=== PATIENT | female | born 1970 | race Caucasian/White ===

== ENCOUNTER 2023-05-22 23:43 | Emergency (ER) | payer OTHER, SELFPAY ==
[2023-05-22 23:47] VITALS: BP 151/108; PULSE 116; RESP 30; TEMP 37.2; O2SAT 99; BMI 28.8
[2023-05-22 23:54] VITALS: PULSE 112; RESP 35; O2SAT 98
[2023-05-22 23:55] VITALS: BP 119/57; PULSE 111; PULSE 112; RESP 22; RESP 39; O2SAT 97
--- NOTE | 2023-05-22 23:55 | DI.RAD.S_ITS ---
PROCEDURE: XR CHEST 1V INDICATIONS: SOB TECHNIQUE: One view of the chest was acquired. COMPARISON: None. FINDINGS: Surgical changes and devices: None. Lungs and pleura: Lungs are clear. No pleural effusions or pneumothorax. Mediastinum: Mediastinal contours appear normal. Heart size is normal. Bones and chest wall: No suspicious bony lesions. Overlying soft tissues appear unremarkable. IMPRESSION: 1. No acute cardiopulmonary disease. Dictated by: Joshua Martínez M.D. on 05/23/2023 at 1:49 Approved by: Joshua Martínez M.D. on 05/23/2023 at 1:49
--- NOTE | 2023-05-22 23:55 | ED.OVERDOSE ---
HPI - Overdose <Garrett Lorenz DO - Last Filed: 05/24/23 04:27> General Chief Complaint: Toxicology Problem Stated Complaint: Agonal Respiration Time Seen by Provider: 05/22/23 23:49 Source: EMS Mode of arrival: EMS History of Present Illness HPI Narrative: 53-year-old female daily smoker presents by EMS for evaluation of what is initially reported as agonal respirations. On their arrival 2 rounds of intranasal Narcan were given which did little but upon placement of IV and a 3rd dose she woke up. She denies any opioid use and states that she only had smoked a pre role of cannabis tonight. She denies any headache or blurred vision. She is had no chest pain and denies any nausea, vomiting or diarrhea. Related Data Allergies Allergy/AdvReac Type Severity Reaction Status Date / Time No Known Drug Allergies Allergy Verified 05/22/23 23:47 Review of Systems <Garrett Lorenz DO - Last Filed: 05/24/23 04:27> Review of Systems Narrative: GENERAL: See HPI HEENT: Denies sinus pain, ear pain, sore throat, difficulty swallowing, dizziness. RESPIRATORY: See HPI CARDIOVASCULAR: Denies chest pain, palpitations, orthopnea, edema, GASTROINTESTINAL: Denies nausea, vomiting, abdominal pain, diarrhea, constipation, melena. : Denies dysuria, frequency, incontinence, hematuria, urinary retention. MUSCULOSKELETAL: denies weakness, joint pain, or bony pain SKIN: Denies rash, skin lesions, or other NEUROLOGIC: Denies weakness, headache, numbness, change in speech, confusion, seizures, incoordination. PSYCHIATRIC: No concerning psychosocial issues. 12 point review of systems is negative except for those stated above Patient History <Garrett Lorenz DO - Last Filed: 05/24/23 04:27> Social History Smoking Status: Current every day smoker Smoking Status: Current every day smoker tobacco type: cigarettes Substance Use Type: marijuana Exam <Garrett Lorenz DO - Last Filed: 05/24/23 04:27> Narrative Exam Narrative: GENERAL: [53] year old patient appears stated age. Well-developed patient, in moderate distress, receiving oxygen by nasal cannula at 2 L, GCS 14, confused, easily arousable HEAD: Atraumatic. Normocephalic. EYES: Pupils equal round and reactive. Extraocular motions intact. No scleral icterus. No injection or drainage. ENT: Nose without bleeding, purulent drainage. Throat without erythema, tonsillar hypertrophy or exudate. Airway patent. NECK: Trachea midline. Non tender CARDIOVASCULAR: Regular rate and rhythm without murmurs, gallops, or rubs. RESPIRATORY: Clear to auscultation. Breath sounds equal bilaterally. No wheezes, rales, or rhonchi. GASTROINTESTINAL: Abdomen soft, non-tender, nondistended. EXTREMITIES: No edema or joint tenderness. BACK: Nontender without deformity or crepitance. No flank tenderness. NEURO: Cranial nerves 2-12 grossly intact SKIN: No rash or erythema of visible areas Initial Vital Signs Initial Vital Signs: Vital Signs Temperature 99 F 05/22/23 23:47 Pulse Rate 116 H 05/22/23 23:47 Respiratory Rate 30 H 05/22/23 23:47 Blood Pressure 151/108 H 05/22/23 23:47 Pulse Oximetry 99 05/22/23 23:47 Oxygen Delivery Method Room Air 05/22/23 23:47 <La Nena Shipman DO - Last Filed: 05/23/23 12:37> Initial Vital Signs Initial Vital Signs: Vital Signs Temperature 99 F 05/22/23 23:47 Pulse Rate 116 H 05/22/23 23:47 Respiratory Rate 30 H 05/22/23 23:47 Blood Pressure 151/108 H 05/22/23 23:47 Pulse Oximetry 99 05/22/23 23:47 Oxygen Delivery Method Room Air 05/22/23 23:47 Course <Garrett Lorenz DO - Last Filed: 05/24/23 04:27> Orders Ordered: Discontinued Medications Sodium Chloride (Normal Saline 0.9%) 1,000 mls @ 150 mls/hr IV CONT IMANI Last Infusion: 05/23/23 10:59 Dose: 0 mls/hr Documented By: Admin: 05/22/23 23:59 Dose: 150 mls/hr Documented By: RHONA(2) Naloxone HCl 2 mg/ Sodium (Chloride) 500 mls @ 62.5 mls/hr IV TITRATE IMANI; Protocol Last Titration: 05/23/23 09:45 Dose: 0 mg/hr, 0 mls/hr Documented By: Titration: 05/23/23 08:07 Dose: 0.5 mg/hr, 125 mls/hr Documented By: Admin: 05/23/23 06:55 Dose: 1 mg/hr, 250 mls/hr Documented By: Titration: 05/23/23 06:50 Dose: 1 mg/hr, 250 mls/hr Documented By: Titration: 05/23/23 05:00 Dose: 1 mg/hr, 250 mls/hr Documented By: Admin: 05/23/23 04:55 Dose: 2 mg/hr, 500 mls/hr Documented By: Titration: 05/23/23 04:27 Dose: 2 mg/hr, 500 mls/hr Documented By: Titration: 05/23/23 03:30 Dose: 2 mg/hr, 500 mls/hr Documented By: Admin: 05/23/23 03:24 Dose: 1 mg/hr, 250 mls/hr Documented By: Titration: 05/23/23 03:22 Dose: 1 mg/hr, 250 mls/hr Documented By: Titration: 05/23/23 00:57 Dose: 1 mg/hr, 250 mls/hr Documented By: RLS(2) Titration: 05/23/23 00:52 Dose: 0.75 mg/hr, 187.5 mls/hr Documented By: RLS(2) Titration: 05/23/23 00:46 Dose: 0.5 mg/hr, 125 mls/hr Documented By: RLS(2) Admin: 05/23/23 00:40 Dose: 0.25 mg/hr, 62.5 mls/hr Documented By: RLS(2) Naloxone HCl (Naloxone 0.4 Mg/Ml Vial) 0.2 mg IV Q2MIN PRN PRN Reason: Opiate Reversal Last Admin: 05/23/23 00:32 Dose: 0.2 mg Documented By: RLS(2) Admin: 05/23/23 00:08 Dose: 0.2 mg Documented By: RLS(2) Naloxone HCl (Naloxone 4 Mg Nasal [place]) 4 mg MISC SEEINSTR ONE Stop: 05/23/23 10:38 Last Admin: 05/23/23 11:47 Dose: 4 mg Documented By: RB Ondansetron HCl (Ondansetron 4 Mg/2 Ml Inj) 4 mg IV NOW ONE Stop: 05/23/23 02:02 Last Admin: 05/23/23 02:10 Dose: 4 mg Documented By: SB Reevaluation(s) Reevaluation #1: Patient becoming somnolent again, Narcan ordered at 0.2 mg IV push Q 3-5 minutes as needed Reevaluation #2: 0030 -patient becoming slightly somnolent again, Narcan drip ordered Reevaluation #3: patient becoming increasingly somnalent, relatively easily arousable. Narcan drip turned up to 2mg/hr over the next twenty minutes she has marked improvement, conversating, upt to commode, oxygen down to 2L Vital Signs Vital signs: Vital Signs - 8 hr 05/23/23 04:40 05/23/23 04:45 05/23/23 04:45 Temperature Pulse Rate 92 H 92 H Respiratory Rate 25 H 22 Blood Pressure 133/62 Pulse Oximetry 95 95 Oxygen Delivery Method Oxygen Flow Rate 05/23/23 04:50 05/23/23 04:55 05/23/23 05:00 Temperature Pulse Rate 101 H 96 H Respiratory Rate 24 24 Blood Pressure 131/55 L Pulse Oximetry 98 95 Oxygen Delivery Method Oxygen Flow Rate 05/23/23 05:00 05/23/23 05:05 05/23/23 05:10 Temperature Pulse Rate 92 H 104 H 119 H Respiratory Rate 26 H 22 50 H Blood Pressure Pulse Oximetry 95 97 99 Oxygen Delivery Method Oxygen Flow Rate 05/23/23 05:15 05/23/23 05:20 05/23/23 05:25 Temperature Pulse Rate 107 H 103 H 111 H Respiratory Rate 19 34 H 34 H Blood Pressure Pulse Oximetry 91 96 94 Oxygen Delivery Method Oxygen Flow Rate 05/23/23 05:26 05/23/23 05:26 05/23/23 05:30 Temperature Pulse Rate 107 H 95 H Respiratory Rate 22 27 H Blood Pressure 138/67 Pulse Oximetry 94 92 Oxygen Delivery Method Oxygen Flow Rate 05/23/23 05:35 05/23/23 05:40 05/23/23 05:45 Temperature Pulse Rate 91 H 90 90 Respiratory Rate 26 H 25 H 27 H Blood Pressure Pulse Oximetry 93 94 94 Oxygen Delivery Method Oxygen Flow Rate 05/23/23 05:50 05/23/23 05:55 05/23/23 06:00 Temperature Pulse Rate 90 96 H 98 H Respiratory Rate 24 14 29 H Blood Pressure Pulse Oximetry 94 95 95 Oxygen Delivery Method Nasal Cannula Oxygen Flow Rate 1 05/23/23 06:05 05/23/23 06:10 05/23/23 06:15 Temperature Pulse Rate 106 H 105 H 96 H Respiratory Rate 27 H 27 H 17 Blood Pressure Pulse Oximetry 96 93 91 Oxygen Delivery Method Oxygen Flow Rate 05/23/23 06:20 05/23/23 06:25 05/23/23 06:30 Temperature Pulse Rate 93 H 91 H 90 Respiratory Rate 21 25 H 25 H Blood Pressure Pulse Oximetry 91 91 92 Oxygen Delivery Method Oxygen Flow Rate 05/23/23 06:35 05/23/23 06:40 05/23/23 06:45 Temperature Pulse Rate 90 91 H 92 H Respiratory Rate 26 H 24 20 Blood Pressure Pulse Oximetry 92 92 93 Oxygen Delivery Method Nasal Cannula Oxygen Flow Rate 1 05/23/23 08:18 05/23/23 08:00 05/23/23 08:15 Temperature Pulse Rate 101 H 108 H 100 H Respiratory Rate 18 Blood Pressure 154/72 H 158/77 H 154/72 H Pulse Oximetry 99 97 90 L Oxygen Delivery Method Nasal Cannula Nasal Cannula Nasal Cannula Oxygen Flow Rate 1 05/23/23 08:30 05/23/23 08:45 05/23/23 09:00 Temperature Pulse Rate 104 H 95 H 97 H Respiratory Rate Blood Pressure 157/75 H 140/61 147/71 H Pulse Oximetry 97 93 93 Oxygen Delivery Method Nasal Cannula Nasal Cannula Nasal Cannula Oxygen Flow Rate 05/23/23 09:15 05/23/23 09:30 05/23/23 09:45 Temperature Pulse Rate 93 H 98 H 102 H Respiratory Rate Blood Pressure 132/61 152/70 H 167/78 H Pulse Oximetry 92 95 97 Oxygen Delivery Method Nasal Cannula Nasal Cannula Nasal Cannula Oxygen Flow Rate 05/23/23 10:00 05/23/23 10:15 05/23/23 10:45 Temperature Pulse Rate 103 H 101 H 91 H Respiratory Rate 16 Blood Pressure 165/70 H 146/66 H 145/66 H Pulse Oximetry 98 94 95 Oxygen Delivery Method Nasal Cannula Nasal Cannula Nasal Cannula Oxygen Flow Rate 1 05/23/23 11:55 Temperature 97.9 F Pulse Rate 88 Respiratory Rate 18 Blood Pressure 142/62 H Pulse Oximetry 95 Oxygen Delivery Method Room Air Oxygen Flow Rate <La Nena Shipman DO - Last Filed: 05/23/23 12:37> Orders Ordered: Discontinued Medications Sodium Chloride (Normal Saline 0.9%) 1,000 mls @ 150 mls/hr IV CONT IMANI Last Infusion: 05/23/23 10:59 Dose: 0 mls/hr Documented By: Admin: 05/22/23 23:59 Dose: 150 mls/hr Documented By: RLS(2) Naloxone HCl 2 mg/ Sodium (Chloride) 500 mls @ 62.5 mls/hr IV TITRATE IMANI; Protocol Last Titration: 05/23/23 09:45 Dose: 0 mg/hr, 0 mls/hr Documented By: Titration: 05/23/23 08:07 Dose: 0.5 mg/hr, 125 mls/hr Documented By: Admin: 05/23/23 06:55 Dose: 1 mg/hr, 250 mls/hr Documented By: Titration: 05/23/23 06:50 Dose: 1 mg/hr, 250 mls/hr Documented By: Titration: 05/23/23 05:00 Dose: 1 mg/hr, 250 mls/hr Documented By: Admin: 05/23/23 04:55 Dose: 2 mg/hr, 500 mls/hr Documented By: Titration: 05/23/23 04:27 Dose: 2 mg/hr, 500 mls/hr Documented By: Titration: 05/23/23 03:30 Dose: 2 mg/hr, 500 mls/hr Documented By: Admin: 05/23/23 03:24 Dose: 1 mg/hr, 250 mls/hr Documented By: Titration: 05/23/23 03:22 Dose: 1 mg/hr, 250 mls/hr Documented By: Titration: 05/23/23 00:57 Dose: 1 mg/hr, 250 mls/hr Documented By: RLS(2) Titration: 05/23/23 00:52 Dose: 0.75 mg/hr, 187.5 mls/hr Documented By: RLS(2) Titration: 05/23/23 00:46 Dose: 0.5 mg/hr, 125 mls/hr Documented By: RLS(2) Admin: 05/23/23 00:40 Dose: 0.25 mg/hr, 62.5 mls/hr Documented By: RLS(2) Naloxone HCl (Naloxone 0.4 Mg/Ml Vial) 0.2 mg IV Q2MIN PRN PRN Reason: Opiate Reversal Last Admin: 05/23/23 00:32 Dose: 0.2 mg Documented By: RLS(2) Admin: 05/23/23 00:08 Dose: 0.2 mg Documented By: RLS(2) Naloxone HCl (Naloxone 4 Mg Nasal [place]) 4 mg MISC SEEINSTR ONE Stop: 05/23/23 10:38 Last Admin: 05/23/23 11:47 Dose: 4 mg Documented By: RB Ondansetron HCl (Ondansetron 4 Mg/2 Ml Inj) 4 mg IV NOW ONE Stop: 05/23/23 02:02 Last Admin: 05/23/23 02:10 Dose: 4 mg Documented By: SB Vital Signs Vital signs: Vital Signs - 8 hr 05/23/23 04:40 05/23/23 04:45 05/23/23 04:45 Temperature Pulse Rate 92 H 92 H Respiratory Rate 25 H 22 Blood Pressure 133/62 Pulse Oximetry 95 95 Oxygen Delivery Method Oxygen Flow Rate 05/23/23 04:50 05/23/23 04:55 05/23/23 05:00 Temperature Pulse Rate 101 H 96 H Respiratory Rate 24 24 Blood Pressure 131/55 L Pulse Oximetry 98 95 Oxygen Delivery Method Oxygen Flow Rate 05/23/23 05:00 05/23/23 05:05 05/23/23 05:10 Temperature Pulse Rate 92 H 104 H 119 H Respiratory Rate 26 H 22 50 H Blood Pressure Pulse Oximetry 95 97 99 Oxygen Delivery Method Oxygen Flow Rate 05/23/23 05:15 05/23/23 05:20 05/23/23 05:25 Temperature Pulse Rate 107 H 103 H 111 H Respiratory Rate 19 34 H 34 H Blood Pressure Pulse Oximetry 91 96 94 Oxygen Delivery Method Oxygen Flow Rate 05/23/23 05:26 05/23/23 05:26 05/23/23 05:30 Temperature Pulse Rate 107 H 95 H Respiratory Rate 22 27 H Blood Pressure 138/67 Pulse Oximetry 94 92 Oxygen Delivery Method Oxygen Flow Rate 05/23/23 05:35 05/23/23 05:40 05/23/23 05:45 Temperature Pulse Rate 91 H 90 90 Respiratory Rate 26 H 25 H 27 H Blood Pressure Pulse Oximetry 93 94 94 Oxygen Delivery Method Oxygen Flow Rate 05/23/23 05:50 05/23/23 05:55 05/23/23 06:00 Temperature Pulse Rate 90 96 H 98 H Respiratory Rate 24 14 29 H Blood Pressure Pulse Oximetry 94 95 95 Oxygen Delivery Method Nasal Cannula Oxygen Flow Rate 1 05/23/23 06:05 05/23/23 06:10 05/23/23 06:15 Temperature Pulse Rate 106 H 105 H 96 H Respiratory Rate 27 H 27 H 17 Blood Pressure Pulse Oximetry 96 93 91 Oxygen Delivery Method Oxygen Flow Rate 05/23/23 06:20 05/23/23 06:25 05/23/23 06:30 Temperature Pulse Rate 93 H 91 H 90 Respiratory Rate 21 25 H 25 H Blood Pressure Pulse Oximetry 91 91 92 Oxygen Delivery Method Oxygen Flow Rate 05/23/23 06:35 05/23/23 06:40 05/23/23 06:45 Temperature Pulse Rate 90 91 H 92 H Respiratory Rate 26 H 24 20 Blood Pressure Pulse Oximetry 92 92 93 Oxygen Delivery Method Nasal Cannula Oxygen Flow Rate 1 05/23/23 08:18 05/23/23 08:00 05/23/23 08:15 Temperature Pulse Rate 101 H 108 H 100 H Respiratory Rate 18 Blood Pressure 154/72 H 158/77 H 154/72 H Pulse Oximetry 99 97 90 L Oxygen Delivery Method Nasal Cannula Nasal Cannula Nasal Cannula Oxygen Flow Rate 1 05/23/23 08:30 05/23/23 08:45 05/23/23 09:00 Temperature Pulse Rate 104 H 95 H 97 H Respiratory Rate Blood Pressure 157/75 H 140/61 147/71 H Pulse Oximetry 97 93 93 Oxygen Delivery Method Nasal Cannula Nasal Cannula Nasal Cannula Oxygen Flow Rate 05/23/23 09:15 05/23/23 09:30 05/23/23 09:45 Temperature Pulse Rate 93 H 98 H 102 H Respiratory Rate Blood Pressure 132/61 152/70 H 167/78 H Pulse Oximetry 92 95 97 Oxygen Delivery Method Nasal Cannula Nasal Cannula Nasal Cannula Oxygen Flow Rate 05/23/23 10:00 05/23/23 10:15 05/23/23 10:45 Temperature Pulse Rate 103 H 101 H 91 H Respiratory Rate 16 Blood Pressure 165/70 H 146/66 H 145/66 H Pulse Oximetry 98 94 95 Oxygen Delivery Method Nasal Cannula Nasal Cannula Nasal Cannula Oxygen Flow Rate 1 05/23/23 11:55 Temperature 97.9 F Pulse Rate 88 Respiratory Rate 18 Blood Pressure 142/62 H Pulse Oximetry 95 Oxygen Delivery Method Room Air Oxygen Flow Rate MDM - Overdose <Garrett Lorenz, DO - Last Filed: 05/24/23 04:27> Lab Data 05/22/23 23:45 05/22/23 23:45 Labs: Lab Results 05/22/23 05/22/23 05/22/23 Range/Units 23:45 23:45 23:45 WBC 9.0 (4.5-11.0) X10^3/uL RBC 3.68 L (4.0-5.2) X10^6/uL Hgb 11.1 L (12.0-16.0) g/dL Hct 32.8 L (36-46) % MCV 89.1 (80-100) fL MCH 30.1 (26-34) PG MCHC 33.8 (30-36) % RDW 14.7 (11.6-14.8) % Plt Count 333 (150-400) X10^3/uL Neut % (Auto) 51.6 (50-75) % Lymph % (Auto) 41.7 H (25-40) % [place] % (Auto) 5.3 (3-14) % Eos % (Auto) 1.1 L (2-4) % Baso % (Auto) 0.3 (0-2) % Neut # (Auto) 4700 (1654-4852) /uL Lymph # (Auto) 3800 (7505-4797) /uL [place] # (Auto) 500 (0-900) /uL Eos # (Auto) 100 (0-450) /uL Baso # (Auto) 0 (0-100) /uL D-Dimer 564 H (<500) ng/ml Sodium 134 L (137-145) mmol/L Potassium 4.1 (3.4-5.1) mmol/L Chloride 100 (98-107) mmol/L Carbon Dioxide 26 (22-32) mmol/L BUN 10 (7-17) mg/dL Creatinine 0.66 (0.52-1.04) mg/dL Estimated GFR > 60 (>60) mL/min BUN/Creatinine Ratio 15.2 (6-22) Glucose 269 H (70-100) mg/dL Lactate (0.7-2.1) mmol/L Calcium 8.6 (8.4-10.2) mg/dL Total Bilirubin 0.3 (0.2-1.3) mg/dL Conjugated Bilirubin 0.0 (0.0-0.3) md/dL Unconjugated Bilirubin 0.1 (0.0-1.1) mg/dL AST 65 H (14-36) IU/L ALT 39 H (<35) IU/L Alkaline Phosphatase 88 (38-126) U/L Total Creatine Kinase 931 H (30-135) U/L Troponin I < 0.012 (0.01-0.034) ng/mL Total Protein 7.2 (6.3-8.2) g/dL Albumin 4.0 (3.5-5.0) g/dL Globulin 3.2 (1.7-4.1) g/dL Albumin/Globulin Ratio 1.3 (1.0-2.8) Procalcitonin 0.07 (<0.5) ng/mL Salicylates < 1.0 (<20) mg/dL U Opiates 300ng/mL cut (Negative) Ur Oxycodone Screen (Negative) Urine Methadone Screen (Negative) Acetaminophen < 10 (10-30) ug/mL Ur Barbiturates Screen (Negative) U Tricyclic Antidepress (Negative) Ur Phencyclidine Scrn (Negative) Ur Amphetamines Screen (Negative) U Methamphetamines Scrn (Negative) Ur MDMA Scrn (Ecstasy) (Negative) U Benzodiazepines Scrn (Negative) Urine Cocaine Screen (Negative) U Marijuana (THC) Screen (Negative) Ethyl Alcohol < 10 ( - 10) mg/dL 05/22/23 05/23/23 05/23/23 Range/Units 23:45 01:57 02:05 WBC (4.5-11.0) X10^3/uL RBC (4.0-5.2) X10^6/uL Hgb (12.0-16.0) g/dL Hct (36-46) % MCV (80-100) fL MCH (26-34) PG MCHC (30-36) % RDW (11.6-14.8) % Plt Count (150-400) X10^3/uL Neut % (Auto) (50-75) % Lymph % (Auto) (25-40) % [place] % (Auto) (3-14) % Eos % (Auto) (2-4) % Baso % (Auto) (0-2) % Neut # (Auto) (9401-0144) /uL Lymph # (Auto) (0761-1627) /uL [place] # (Auto) (0-900) /uL Eos # (Auto) (0-450) /uL Baso # (Auto) (0-100) /uL D-Dimer (<500) ng/ml Sodium (137-145) mmol/L Potassium (3.4-5.1) mmol/L Chloride (98-107) mmol/L Carbon Dioxide (22-32) mmol/L BUN (7-17) mg/dL Creatinine (0.52-1.04) mg/dL Estimated GFR (>60) mL/min BUN/Creatinine Ratio (6-22) Glucose (70-100) mg/dL Lactate 2.5 H 1.1 (0.7-2.1) mmol/L Calcium (8.4-10.2) mg/dL Total Bilirubin (0.2-1.3) mg/dL Conjugated Bilirubin (0.0-0.3) md/dL Unconjugated Bilirubin (0.0-1.1) mg/dL AST (14-36) IU/L ALT (<35) IU/L Alkaline Phosphatase (38-126) U/L Total Creatine Kinase (30-135) U/L Troponin I (0.01-0.034) ng/mL Total Protein (6.3-8.2) g/dL Albumin (3.5-5.0) g/dL Globulin (1.7-4.1) g/dL Albumin/Globulin Ratio (1.0-2.8) Procalcitonin (<0.5) ng/mL Salicylates (<20) mg/dL U Opiates 300ng/mL cut Negative (Negative) Ur Oxycodone Screen Negative (Negative) Urine Methadone Screen Negative (Negative) Acetaminophen (10-30) ug/mL Ur Barbiturates Screen Negative (Negative) U Tricyclic Antidepress Negative (Negative) Ur Phencyclidine Scrn Negative (Negative) Ur Amphetamines Screen Negative (Negative) U Methamphetamines Scrn Negative (Negative) Ur MDMA Scrn (Ecstasy) Negative (Negative) U Benzodiazepines Scrn Negative (Negative) Urine Cocaine Screen Negative (Negative) U Marijuana (THC) Screen Positive H (Negative) Ethyl Alcohol ( - 10) mg/dL Point of Care Testing Test Results Negative Urine Dip Bedside Urine Glucose Negative Bedside Urine Bilirubin - Negative Bedside Urine Ketone +/- 5 Urine Specific [place] 1.015 Bedside Urine Occult Blood - Negative Bedside Urine pH 6.0 Bedside Urine Protein - Negative Bedside Urine Urobilinogen - Negative Bedside Urine Nitrite - Negative Bedside Urine Leukocytes - Negative Esterase <La Nena Shipman, DO - Last Filed: 05/23/23 12:37> Lab Data Labs: Lab Results 05/22/23 05/22/23 05/22/23 Range/Units 23:45 23:45 23:45 WBC 9.0 (4.5-11.0) X10^3/uL RBC 3.68 L (4.0-5.2) X10^6/uL Hgb 11.1 L (12.0-16.0) g/dL Hct 32.8 L (36-46) % MCV 89.1 (80-100) fL MCH 30.1 (26-34) PG MCHC 33.8 (30-36) % RDW 14.7 (11.6-14.8) % Plt Count 333 (150-400) X10^3/uL Neut % (Auto) 51.6 (50-75) % Lymph % (Auto) 41.7 H (25-40) % [place] % (Auto) 5.3 (3-14) % Eos % (Auto) 1.1 L (2-4) % Baso % (Auto) 0.3 (0-2) % Neut # (Auto) 4700 (4890-3326) /uL Lymph # (Auto) 3800 (2012-6883) /uL [place] # (Auto) 500 (0-900) /uL Eos # (Auto) 100 (0-450) /uL Baso # (Auto) 0 (0-100) /uL D-Dimer 564 H (<500) ng/ml Sodium 134 L (137-145) mmol/L Potassium 4.1 (3.4-5.1) mmol/L Chloride 100 (98-107) mmol/L Carbon Dioxide 26 (22-32) mmol/L BUN 10 (7-17) mg/dL Creatinine 0.66 (0.52-1.04) mg/dL Estimated GFR > 60 (>60) mL/min BUN/Creatinine Ratio 15.2 (6-22) Glucose 269 H (70-100) mg/dL Lactate (0.7-2.1) mmol/L Calcium 8.6 (8.4-10.2) mg/dL Total Bilirubin 0.3 (0.2-1.3) mg/dL Conjugated Bilirubin 0.0 (0.0-0.3) md/dL Unconjugated Bilirubin 0.1 (0.0-1.1) mg/dL AST 65 H (14-36) IU/L ALT 39 H (<35) IU/L Alkaline Phosphatase 88 (38-126) U/L Total Creatine Kinase 931 H (30-135) U/L Troponin I < 0.012 (0.01-0.034) ng/mL Total Protein 7.2 (6.3-8.2) g/dL Albumin 4.0 (3.5-5.0) g/dL Globulin 3.2 (1.7-4.1) g/dL Albumin/Globulin Ratio 1.3 (1.0-2.8) Procalcitonin 0.07 (<0.5) ng/mL Salicylates < 1.0 (<20) mg/dL U Opiates 300ng/mL cut (Negative) Ur Oxycodone Screen (Negative) Urine Methadone Screen (Negative) Acetaminophen < 10 (10-30) ug/mL Ur Barbiturates Screen (Negative) U Tricyclic Antidepress (Negative) Ur Phencyclidine Scrn (Negative) Ur Amphetamines Screen (Negative) U Methamphetamines Scrn (Negative) Ur MDMA Scrn (Ecstasy) (Negative) U Benzodiazepines Scrn (Negative) Urine Cocaine Screen (Negative) U Marijuana (THC) Screen (Negative) Ethyl Alcohol < 10 ( - 10) mg/dL 05/22/23 05/23/23 05/23/23 Range/Units 23:45 01:57 02:05 WBC (4.5-11.0) X10^3/uL RBC (4.0-5.2) X10^6/uL Hgb (12.0-16.0) g/dL Hct (36-46) % MCV (80-100) fL MCH (26-34) PG MCHC (30-36) % RDW (11.6-14.8) % Plt Count (150-400) X10^3/uL Neut % (Auto) (50-75) % Lymph % (Auto) (25-40) % [place] % (Auto) (3-14) % Eos % (Auto) (2-4) % Baso % (Auto) (0-2) % Neut # (Auto) (6539-9380) /uL Lymph # (Auto) (8913-2108) /uL [place] # (Auto) (0-900) /uL Eos # (Auto) (0-450) /uL Baso # (Auto) (0-100) /uL D-Dimer (<500) ng/ml Sodium (137-145) mmol/L Potassium (3.4-5.1) mmol/L Chloride (98-107) mmol/L Carbon Dioxide (22-32) mmol/L BUN (7-17) mg/dL Creatinine (0.52-1.04) mg/dL Estimated GFR (>60) mL/min BUN/Creatinine Ratio (6-22) Glucose (70-100) mg/dL Lactate 2.5 H 1.1 (0.7-2.1) mmol/L Calcium (8.4-10.2) mg/dL Total Bilirubin (0.2-1.3) mg/dL Conjugated Bilirubin (0.0-0.3) md/dL Unconjugated Bilirubin (0.0-1.1) mg/dL AST (14-36) IU/L ALT (<35) IU/L Alkaline Phosphatase (38-126) U/L Total Creatine Kinase (30-135) U/L Troponin I (0.01-0.034) ng/mL Total Protein (6.3-8.2) g/dL Albumin (3.5-5.0) g/dL Globulin (1.7-4.1) g/dL Albumin/Globulin Ratio (1.0-2.8) Procalcitonin (<0.5) ng/mL Salicylates (<20) mg/dL U Opiates 300ng/mL cut Negative (Negative) Ur Oxycodone Screen Negative (Negative) Urine Methadone Screen Negative (Negative) Acetaminophen (10-30) ug/mL Ur Barbiturates Screen Negative (Negative) U Tricyclic Antidepress Negative (Negative) Ur Phencyclidine Scrn Negative (Negative) Ur Amphetamines Screen Negative (Negative) U Methamphetamines Scrn Negative (Negative) Ur MDMA Scrn (Ecstasy) Negative (Negative) U Benzodiazepines Scrn Negative (Negative) Urine Cocaine Screen Negative (Negative) U Marijuana (THC) Screen Positive H (Negative) Ethyl Alcohol ( - 10) mg/dL Point of Care Testing Test Results Negative Urine Dip Bedside Urine Glucose Negative Bedside Urine Bilirubin - Negative Bedside Urine Ketone +/- 5 Urine Specific [place] 1.015 Bedside Urine Occult Blood - Negative Bedside Urine pH 6.0 Bedside Urine Protein - Negative Bedside Urine Urobilinogen - Negative Bedside Urine Nitrite - Negative Bedside Urine Leukocytes - Negative Esterase Imaging Data CT scan - head: Radiologist's Impression: PROCEDURE:? CT HEAD/BRAIN WO CON ? INDICATIONS:? altered ? TECHNIQUE:? Noncontrast 4.5 mm thick angled axial sections acquired from the foramen magnum to the vertex, with coronal and sagittal reformats.? For radiation dose reduction, the following was used:? automated exposure control, adjustment of mA and/or kV according to patient size.? ? COMPARISON:? None. ? FINDINGS:? Image quality:? Excellent.? ? CSF spaces:? Basal cisterns are patent.? No extra-axial fluid collections.? Ventricles are normal in size and shape.? ? Brain:? No midline shift.? No intracranial masses or hemorrhage.? Veloz-white matter interface is normal.? ? Skull and face:? Calvarium and visualized facial bones are intact, without suspicious lesions.? ? Sinuses:? Visualized sinuses and mastoids are clear.? ? IMPRESSION:? ? 1. No acute intracranial abnormalities. ? No significant discrepancy with the lieutenant shift supervisor radiology preliminary report. ? ? ? Dictated by: Felicia Mahoney M.D. on 05/23/2023 at 7:44? Chest x-ray: Radiologist's Impression: PROCEDURE:? XR CHEST 1V ? INDICATIONS:? SOB ? TECHNIQUE:? One view of the chest was acquired.? ? COMPARISON:? None. ? FINDINGS:? ? Surgical changes and devices:? None.? ? Lungs and pleura:? Lungs are clear.? No pleural effusions or pneumothorax.? ? Mediastinum:? Mediastinal contours appear normal.? Heart size is normal.? ? Bones and chest wall:? No suspicious bony lesions.? Overlying soft tissues appear unremarkable.? ? IMPRESSION:? ? 1.? No acute cardiopulmonary disease. ? ? ? Dictated by: Joshua Martínez M.D. on 05/23/2023 at 1:49 ? ? [facility] Narrative Medical decision making narrative: Dr. Shipman-patient is a 53-year-old female who presents with agonal breathing only admits or marijuana use and that is the only thing positive on her drug screen however she is responding well to Narcan drip she had been on a Narcan drip her numerous hours is being weaned down. I have seen evaluated patient myself. She is awake and alert, requiring 1 L nasal cannula oxygen./her chest x-ray is negative, hypoxia secondary to opiates. D-dimer minimally elevated at 564 unlikely to be a pulmonary embolism. She initially had a lactate of 2.6 which improved other blood work is reviewed and reassuring. Apparently there was initial thought of intubating secondary to agonal respirations however due to good response with Narcan intubation was held off. She is definitely more awake and responsive now still on a small amount of Narcan will continue to monitor possibly adamant versus. Narcan and DC home Narcan drip has been turned off for 90 minutes or more she ambulated she is awake she is alert he is eating food at this time no need for admission. She denies any suicidal ideations this is clearly an accidental overdose. Naloxone at Discharge Meets criteria for naloxone at discharge?: Yes Discharge Plan Departure Patient Disposition: Home Clinical Impression: Opiate overdose Instructions: DI for Drug Overdose in Adults Activity Restrictions/Additional Instructions: *You have been diagnosed with opiate overdose *What to do: At this time it is likely that you overdosed on opiates. I am glad that you are feeling better. Please avoid opiates. Use Narcan as prescribed. Do not use any drugs after being on a Narcan drip *Continue to take medications as directed *Follow up with your primary care provider in 2-3 days or call [phone] *Return to ER if you should have decreasing mental status or any new, worsening or concerning symptoms Stand Alone Forms: Patient Portal/API
[2023-05-22] MEDS: SODIUM CHLORIDE 0.9% 1,000 ML 150 ML IV (23:59)
[2023-05-23] VITALS (70 sets, daily range): BP systolic 115–167; BP diastolic 55–78; PULSE 88–119; RESP 14–52; TEMP 36.6; O2SAT 86–100
[2023-05-23 00:07] LABS: Lactate (Lactic Acid) 2.5 mmol/L (0.7-2.1)
[2023-05-23] MEDS: NALOXONE 0.4 MG/ML VIAL 0.2 MG IV ×2 (00:08→00:32)
[2023-05-23 00:09] LABS: Add Manual Diff / Slide Review NO; Basophils Absolute Auto 0 /uL (0-100); Basophils Percent Auto 0.3 % (0-2); Eosinophils Absolute Auto 100 /uL (0-450); Eosinophils Percent Auto 1.1 % (2-4); Hematocrit 32.8 % (36-46); Hemoglobin 11.1 g/dL (12.0-16.0); Lymphocytes Absolute Auto 3800 /uL (1100-4500); Lymphocytes Percent Auto 41.7 % (25-40); Mean Corpuscular HGB Conc 33.8 % (30-36); Mean Corpuscular Hemoglobin 30.1 PG (26-34); Mean Corpuscular Volume 89.1 fL (80-100); Monocytes Absolute Auto 500 /uL (0-900); Monocytes Percent Auto 5.3 % (3-14); Neutrophils Absolute Auto 4700 /uL (1500-7000); Neutrophils Percent Auto 51.6 % (50-75); Platelet Count 333 X10^3/uL (150-400); Red Blood Cell Count 3.68 X10^6/uL (4.0-5.2); Red Cell Distribution Width 14.7 % (11.6-14.8)
--- NOTE | 2023-05-23 00:09 | PC.NURSE ---
Addendum entered by Maura Denis R.N. 05/23/23 01:29: Patient stable on 1mg/hr Narcan drip. Not requiring 1:1 observation by RN or RT. Remains on 4L O2 by nasal cannula d/t intermittent drowsing. Report given to Eunice GARCIA. Addendum entered by Maura Denis R.N. 05/23/23 01:04: Titrating Narcan to effect with guidance from Dr Lorenz. See MAR for details. Remaining 1:1 observation. Addendum entered by Maura Denis R.N. 05/23/23 00:41: Patient stating something isn't right, when asked for clarification patient states I fell hot and then cold. Educated patient that she was being given opioid reversal medications and was going to be started on a drip. Asked patient again if it was possible she took anything else or was given anything else without her knowledge, patient states I don't think so. Addendum entered by Maura Denis R.N. 05/23/23 00:33: Notified provider of increased O2 demands and respiratory support by RT. New orders placed for Narcan drip. Charge notified. Addendum entered by Maura Denis R.N. 05/23/23 00:26: Patient on 3L O2 by NC. Short shallow respirations, one episode of snoring. Remaining 1:1 observation by RN. Original Note: Patient with dropping RA O2 saturation and slowing respirations. Notified RT and provider of concerns, new orders placed for additional 0.2mg IV Narcan. Respiratory Therapy at bedside attaching patient to end-tidal CO2 monitoring. After Narcan patient appears to be more alert with eyes opening spontaneously and increased respirations.
[2023-05-23 00:10] LABS: Acetaminophen < 10 ug/mL (10-30); Ethanol (ETOH) < 10 mg/dL; HEMOLYSIS < 15 (0-50); Salicylate < 1.0 mg/dL (<20)
[2023-05-23 00:14] LABS: Alanine Aminotransferase 39 IU/L (<35); Albumin Globulin Ratio 1.3 (1.0-2.8); Alkaline Phosphatase 88 U/L (38-126); Aspartate Aminotransferase 65 IU/L (14-36); BUN Creatinine Ratio 15.2 (6-22); Bilirubin Total 0.3 mg/dL (0.2-1.3); Bilirubin Unconjugated 0.1 mg/dL (0.0-1.1); Blood Urea Nitrogen 10 mg/dL (7-17); Calcium 8.6 mg/dL (8.4-10.2); Carbon Dioxide 26 mmol/L (22-32); Chloride 100 mmol/L (98-107); Creatine Kinase 931 U/L (30-135); Estimated Glomerular Filt Rate > 60 mL/min (>60); Globulin 3.2 g/dL (1.7-4.1); Glucose 269 mg/dL (70-100); Potassium 4.1 mmol/L (3.4-5.1); Sodium 134 mmol/L (137-145); Total Protein 7.2 g/dL (6.3-8.2)
[2023-05-23 00:25] LABS: Troponin I < 0.012 ng/mL (0.01-0.034)
[2023-05-23 00:30] LABS: Procalcitonin 0.07 ng/mL (<0.5)
[2023-05-23] MEDS: NALOXONE 2 MG in SODIUM CHLORIDE 0.9% 500 ML 62.5 MG IV (00:40)
[2023-05-23 00:45] LABS: D Dimer 564 ng/ml (<500)
--- NOTE | 2023-05-23 01:39 | DI.CT.S_ITS ---
PROCEDURE: CT HEAD/BRAIN WO CON INDICATIONS: altered TECHNIQUE: Noncontrast 4.5 mm thick angled axial sections acquired from the foramen magnum to the vertex, with coronal and sagittal reformats. For radiation dose reduction, the following was used: automated exposure control, adjustment of mA and/or kV according to patient size. COMPARISON: None. FINDINGS: Image quality: Excellent. CSF spaces: Basal cisterns are patent. No extra-axial fluid collections. Ventricles are normal in size and shape. Brain: No midline shift. No intracranial masses or hemorrhage. Veloz-white matter interface is normal. Skull and face: Calvarium and visualized facial bones are intact, without suspicious lesions. Sinuses: Visualized sinuses and mastoids are clear. IMPRESSION: 1. No acute intracranial abnormalities. No significant discrepancy with the security shift manager radiology preliminary report. Dictated by: Felicia Mahoney M.D. on 05/23/2023 at 7:44 Approved by: Felicia Mahoney M.D. on 05/23/2023 at 7:44
[2023-05-23 01:58] LABS: Reflexed Lactate in 2 Hours Y
[2023-05-23] MEDS: ONDANSETRON 4 MG/2 ML INJ IV (02:10)
[2023-05-23 02:15] LABS: Lactate 2HR (Lactic Acid Rflx) 1.1 mmol/L (0.7-2.1)
[2023-05-23 03:10] LABS: Ur Creatinine Normal (Normal); Ur Specific Gravity Normal (Normal)
[2023-05-23 03:11] LABS: UR Morphine/Opiate cutoff 300 Negative (Negative); Urine Amphetamines Negative (Negative); Urine Barbiturates Negative (Negative); Urine Benzodiazepines Negative (Negative); Urine Cocaine Negative (Negative); Urine MDMA Negative (Negative); Urine Methadone Negative (Negative); Urine Methamphetamines Negative (Negative); Urine Oxycodone Negative (Negative); Urine Phencyclidine Negative (Negative); Urine Tetrahydrocannabinol Positive (Negative); Urine Tricyclic Antidepressant Negative (Negative); Urine pH Normal (Normal)
[2023-05-23] MEDS: NALOXONE 2 MG in SODIUM CHLORIDE 0.9% 500 ML 250 MG IV ×2 (03:24→06:55)
--- NOTE | 2023-05-23 04:19 | PC.NURSE ---
Patient independently exited bed and sat on BSC to have additional loose stool. Prior, patient had 2 episodes of diarrhea/incontinence. While on BSC, patient is answering questions appropriately and on RA, she is able to clean herself up and lay back down in bed. Patient's spO2 in low 90's on RA. Nasal cannula placed back on at 2L, this improved her spO2 to >95%. Narcan gtt continues to infuse at 2mg/hr.
[2023-05-23] MEDS: NALOXONE 2 MG in SODIUM CHLORIDE 0.9% 500 ML 500 MG IV (04:55)
--- NOTE | 2023-05-23 08:09 | PC.NURSE ---
pt reports that she got her Marijuana from someone. States she did not buy the marijuana from any dispensary. pt is awake . got up to the bedside commode with minimal assistance. Noted that patient has various stages of healing bruises over her body. she states that she got them my dog was fighting with my boyfriend's dog. aware.
[2023-05-23] MEDS: NALOXONE 4 MG NASAL SPRAY MISC (11:47)
== END 2023-05-23 12:03 | disposition home or self-care (01) ==
PROVIDERS: Emergency Medicine; Emergency Provider Emergency Medicine
DX: T40.601A Poisoning by unspecified narcotics, accidental (unintentional), initial encounter (principal)
CPT/HCPCS: 70450; 71045; 80053; 80076; 80305; 80320; 80329; 81003; 81025; 82550; 83605; 84145; 84484; 85025; 85379; 96365; 96366; 96375; 99284; 99285; 99291; 99292; A9270; G0480; J2310; J2405